=== PATIENT | female | born 1945 | race Caucasian/White ===

== ENCOUNTER → 2019-06-19 13:03 | Outpatient (CLI) | payer MEDICARE, SELFPAY ==
--- NOTE | ~2019-06-19 | MM_ITS ---
EXAMINATION: MM screening [facility] BI w binu HISTORY: Screening mammogram TECHNIQUE: Craniocaudal and mediolateral oblique 3-D tomosynthesis images were obtained and synthetic 2-D images were generated. CAD analysis was submitted and interpreted. COMPARISON: 07/24/2017, 07/11/2016, 07/15/2015 BREAST PARENCHYMAL COMPOSITION: There are scattered areas of fibroglandular density. FINDINGS: There are dystrophic calcifications of the right breast. There is no evidence of suspicious mass, calcification, or architectural distortion to suggest malignancy in either breast. There has b een no suspicious interval change. IMPRESSION: 1. No mammographic evidence of malignancy. 2. Recommend routine screening mammography in one year. BI-RADS Category 2: Benign finding(s). Reviewed, dictated and finalized at location A.
--- NOTE | ~2019-06-19 | DEXA_ITS ---
Bone Density Report Name: Steph Gutierrez Age: 73 Sex: Female Ethnicity: White Date of : 1945 Indication: postmenopausal; screening for osteoporosis; height loss; Referring Provider: TOSHIA DOWLING Study: Bone densitometry was performed. Exam Date: June 19, 2019 Accession number: [id number] Bone Density: Region BMD T-score Z-score Classification AP Spine (L1-L4) 1.139 0.8 3.3 Normal Femoral Neck (Left) 0.841 -0.1 2.0 Normal Total Hip (Left) 1.040 0.8 2.6 Normal Femoral Neck (Right) 0.820 -0.3 1.9 Normal Total Hip (Right) 0.993 0.4 2.2 Normal Total Hip Mean 1.017 0.6 2.4 Normal World Health Organization criteria for BMD impression classify patients as: Normal (T-score at or above -1.0), Osteopenia (T-score between -1.0 and -2.5), or Osteoporosis (T-score at or below -2.5). 10-year Fracture Risk: FRAX not reported because: All T-scores for Spine Total, Hip Total, Femoral Neck at or above -1.0 Clinical Information Provided by Patient: Has used the following medications: Vitamin D Patient maximum height was 68 Menopause Age: 41 No regular weight bearing exercise Drinks caffeinated beverages Onset of menses at age 13 Number of children 2 Impression: The patient has normal bone mass. Discussion: BONE DENSITY IS ABOVE THE MINIMUM DESIRABLE LEVEL AT ALL SKELETAL SITES TESTED. This patient?s bone mineral density is above the minimum desirable level (T-score -1.0 or better) at all sites measured. The patient should follow a healthful lifestyle (good nutrition with adequate calcium and vitamin D, and appropriate weight-bearing exercise). Follow-Up: Consider repeating this study in 5 years or sooner if there is some new clinical indication. Reported by: [facility] on 06/19/2019 2:11:00 PM. Reviewed, dictated and finalized at location [facility]ilma [facility]ENTER[facility]
== END ==
PROVIDERS: PCP Emergency Medicine; Visit Provider Emergency Medicine
DX: Z12.31 Encounter for screening mammogram for malignant neoplasm of breast (principal); Z78.0 Asymptomatic menopausal state
CPT/HCPCS: 77063; 77067; 77080

== ENCOUNTER 2019-12-20 07:32 | Outpatient (RCR) | payer MEDICARE, OTHER, SELFPAY ==
--- NOTE | 2019-12-20 09:09 | OTOPEVAL ---
OCCUPATIONAL THERAPY EVALUATION REPORT 12/20/2019 Thank you for referring Steph Gutierrez to [facility].? The patient is scheduled to be seen for therapy?1x/week for 5 weeks. Please review, sign, date and return this plan of care SUKHWINDER. I agree with and certify that the following plan of care is medically necessary. Referring Physician Date Admitting Provider: Attending Provider: Tate Cerna MD Referring Provider: *OT Outpatient Evaluation Start: 12/20/19 08:03 Freq: Status: Active Protocol: Document 12/20/19 08:03 CHINTAN (Rec: 12/20/19 09:00 CHINTAN [email or web address]) Therapy Assessment Status Assessment Status Assessment Status Evaluation Outpatient Past Medical History Past Medical History Source of Past Medical History Patient Neurological History Hx Neurological Disorders No Significant History Cardiovascular History Hx Hypertension Yes Respiratory History Hx Respiratory Disorders No Significant History Musculoskeletal History Hx Fractures Yes: left wrist 1992 Evaluation Information Problem Diagnosis 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 Zheng Text:As Reported By Patient/ Nehemiah 10/29/19 after having Family reduced extension of the MF and RF of her right hand. He injected the 4th extensor compartment with Cortisone and she did not respond to the injection. MRI shows tenosynovitis of the 4th dorsal compartment. Prior Level of Function Activity Level (Last 3 Months) Occupation Book keeper Hand Dominance Right Activity of Daily Living Ability Independent Cooking Yes Cleaning Yes Laundry Yes Shopping Yes Driving Yes Comments Additional Prior Level of Function Patient lives alone and is Comments active. She does all of her own ADLs, household tasks, and yard work. She states the lack of extension in her right hand inhibits her from opening her hand to reach and grab objects as well as frequently dropping items. 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 She states I'm on a computer ev
--- NOTE | 2020-01-09 14:26 | OTOPEVAL ---
OCCUPATIONAL THERAPY DISCHARGE NOTE 01/09/2020 Steph called and cancelled her remaining therapy visits stating she is getting another MRI and might be getting surgery. Therapy only saw the patient for the initial evaluation and one treatment session which consisted of splinting the affected digits in relative extension for support and to promote function of her dominant hand. D/C'ing today with goals not addressed. Thank you for referring Steph Gutierrez to [facility]. Please review, sign, date and return this D/C Note USKHWINDER. I agree with and certify that the following plan of care is medically necessary. Referring Physician Date Attending Provider: Tate Cerna MD
== END 2020-01-10 12:25 | disposition home or self-care (01) ==
LOC: ANHOT 07:32
PROVIDERS: PCP Emergency Medicine; Visit Provider Plastic Surgery
DX: M65.9 Synovitis and tenosynovitis, unspecified (principal)
CPT/HCPCS: 97018; 97166; L3919

== ENCOUNTER → 2020-11-27 13:44 | Outpatient (CLI) | payer MEDICARE, SELFPAY ==
--- NOTE | ~2020-11-27 | MM_ITS ---
EXAMINATION: MM screening [facility] BI w binu HISTORY: Screening mammogram TECHNIQUE: Craniocaudal and mediolateral oblique 3-D tomosynthesis images were obtained and synthetic 2-D images were generated. CAD analysis was submitted and interpreted. COMPARISON: 06/19/2019, 07/24/2017, 07/07/2016 bilateral digital screening mammogram examinations BREAST PARENCHYMAL COMPOSITION: There are scattered areas of fibroglandular density. FINDINGS: Occasional benign calcifications. There is no evidence of suspicious mass, calcification, o r architectural distortion to suggest malignancy in either breast. There has been no suspicious inter raghu change. IMPRESSION: 1. No mammographic evidence of malignancy. 2. Recommend routine screening mammography in one year. BI-RADS Category 2: Benign finding(s). Reviewed, dictated and finalized at location A.
== END ==
PROVIDERS: PCP Emergency Medicine; Visit Provider Emergency Medicine
DX: Z12.31 Encounter for screening mammogram for malignant neoplasm of breast (principal)
CPT/HCPCS: 77063; 77067

== ENCOUNTER 2021-01-27 09:33 | Outpatient (CLI) | payer MEDICARE, SELFPAY ==
--- NOTE | 2021-01-27 11:15 | NEURO_ITS ---
Impression: # Complains of right hand numbness and difficulty in moving fingers. # Right Carpal Tunnel Syndrome. # No ulnar neuropathy. # Normal needle/EMG exam. # Clinical correlation recommended. Nerve Conduction Studies Anti Sensory Summary Table Stim Site NR Peak (ms) P-T Amp (?V) Site1 Site2 Delta-P (ms) Dist (cm) Federico (m/s) Right Median Anti Sensory (2-3nd Digit) Wrist 3.7 25.5 Wrist 2-3nd Digit 3.7 14.0 38 Wrist 4.1 18.4 Wrist 2-3nd Digit 3.7 14.0 38 Right Radial Anti Sensory (Base 1st Digit) Wrist 2.1 26.6 Wrist Base 1st Digit 2.1 0.0 Right Ulnar Anti Sensory (5th Digit) Wrist 2.7 51.3 Wrist 5th Digit 2.7 14.0 52 Motor Summary Table Stim Site NR Onset (ms) O-P Amp (mV) Site1 Site2 Delta-0 (ms) Dist (cm) Federico (m/s) Right Median Motor (Abd Poll Brev) Wrist 4.1 4.6 Elbow Wrist 4.9 28.0 57 Elbow 9.0 3.6 Right Ulnar Motor (Abd Dig Minimi) Wrist 2.4 5.6 A Elbow Wrist 4.9 29.0 59 A Elbow 7.3 3.5 F Wave Studies NR F-Lat (ms) L-R F-Lat (ms) Right Median (Mrkrs) (Abd Poll Brev) 29.63 Right Ulnar (Mrkrs) (Abd Dig Min) 28.44 EMG Side Muscle Nerve Root Ins Act Fibs Amp Dur Recrt Comment Right 1stDorInt Ulnar C8-T1 Nml Nml Nml Nml Nml Right Ext Indicis Radial (Post Int) C7-8 Nml Nml Nml Nml Nml Right Ext Digitorum Radial (Post Int) C7-8 Nml Nml Nml Nml Nml Right BrachioRad Radial C5-6 Nml Nml Nml Nml Nml Right PronatorTeres Median C6-7 Nml Nml Nml Nml Nml Right Abd Poll Brev Median C8-T1 Nml Nml Nml Nml Nml Right ABD Dig Min Ulnar C8-T1 Nml Nml Nml Nml Nml MTDD
== END 2021-01-27 09:34 | disposition home or self-care (01) ==
LOC: ANHNEURO 09:36
PROVIDERS: PCP Emergency Medicine; Visit Provider Plastic Surgery
DX: G56.01 Carpal tunnel syndrome, right upper limb (principal); R29.898 Other symptoms and signs involving the musculoskeletal system
CPT/HCPCS: 95886; 95909

== ENCOUNTER 2021-03-15 10:40 | Outpatient (CLI) | payer MEDICARE, SELFPAY ==
[2021-03-15 11:26] LABS: Anion Gap 6 mmol/L (8-16); Blood Urea Nitrogen 33 mg/dL (7-17); Calcium 9.6 mg/dL (8.4-10.2); Carbon Dioxide 25 mmol/L (22-30); Chloride 106 mmol/L (98-107); Estimated Glomerular Filt Rate 54; Glucose 103 mg/dL (65-110); Potassium 4.2 mmol/L (3.4-5.0); Sodium 137 mmol/L (137-145)
== END 2021-03-15 10:41 | disposition home or self-care (01) ==
PROVIDERS: Anesthesiology; PCP Emergency Medicine; Visit Provider Plastic Surgery
DX: Z79.899 Other long term (current) drug therapy (principal); Z01.818 Encounter for other preprocedural examination
CPT/HCPCS: 36415; 80048

== ENCOUNTER 2021-03-17 00:22 | Day surgery (SDC) | payer MEDICARE, SELFPAY ==
[2021-03-10 12:44] VITALS: BMI 36.6
--- NOTE | 2021-03-10 13:00 | PC.NURSE ---
Report to the Outpatient Waiting Room, entrance under the green pavilion located off [facility], at time _0600_ on date _03/17/21_. OR Time: _0730_. - You and your visitor will be asked a series of questions to screen for COVID 19 for your protection. - A mask is required within the hospital. - Only one visitor is allowed at this time. Patient visitors will be guided where to wait when not with patient. Preoperative COVID Testing Requirements: No COVID Test needed if: (proof is required; if not received patient will have Rapid Test prior to entry) - Patient has received COVID Vaccine at least 14 days prior to procedure date or - Patient has positive COVID test result within last 90 days of surgery date. COVID Test needed if above criteria is not met If not COVID vaccinated a COVID test must be conducted within 72 hours of surgery and patient is asked to isolate self from time of testing until procedure. You will go to the [facility] for your COVID testing. The [facility] site is located at the corner of [address] [facility]. You will only be called if COVID results are positive and your surgeon may reschedule your elective surgery date. Patients may have clear liquids (water, carbonated beverages, clear teas, apple juice) until 3 hours prior to surgery (0430 AM) with a maximum of 20 ounces. - No food from midnight until time of surgery - Infants may have breast milk until 4 hours before surgery, infant formula 6 hours prior to surgery. - Children will be allowed to drink immediately following surgery. If applicable, please bring a bottle or sippy cup to assist with drinking. Juice, water, soda, and popsicles are readily available. For infants on formula, please bring formula the day of surgery. Pacifiers are allowed. Take the following medications with a SIP of water the morning of surgery: __NONE____ Medications to discontinue per ANESTHESIA -___VITAMIN D3 - 3 DAYS PRIOR TO SURGERY___ Date to take last dose___03/13/21 Please no make-up, nail anguillan, hairspray, perfume, deodorant, or body powder the day of surgery. No jewelry (including any body piercings) or valuables the day of surgery, leave them at home. Please take a shower or bath the night before, or the morning of, surgery with an antibacterial soap. Wear comfortable, loose fitting clothing. Children are encouraged to wear pajamas. - Jewelry must be removed prior to entering the operating room. Rings and piercings that are not removed may be cut off. - The hospital will not accept responsibility for valuables. - Please leave all valuables, including medications, at home the day of surgery. If you are going home after surgery, a licensed recycle driver must drive you home. - NO public transportation without another adult. - We recommend that an adult stay with you for 24 hours following discharge. - We also recommend that you do not drive, make important decision, drink alcoholic beverages, or take any drugs that were not prescribed by your health care provider for at least 24 hours after your discharge time. For Pediatric surgeries, we recommend two adults accompany the child home (only one inside the building at this time). Follow any additional instructions given to you from your surgeon. Telephone instructions given to PT and asked if any additional questions and then verbalized understanding. Patient advised to call surgeon office or pre surgery nurse liaison [phone] if any additional questions.
--- NOTE | 2021-03-16 13:44 | WPDANESEPPF ---
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 Patient Data Age: 75 Gender: F Height: 1.73 m Weight: 109.09 kg Allergies Allergy/AdvReac Type Severity Reaction Status Date / Time No Known Allergies Allergy Verified 03/17/21 06:22 Home Medications Medication Instructions Recorded Confirmed Type aspirin 81 mg tablet,delayed 81 mg PO QAM 03/28/19 03/17/21 History release cholecalciferol (vitamin D3) 50 2,000 unit PO QAM 03/28/19 03/17/21 History mcg (2,000 unit) capsule simvastatin 20 mg tablet 20 mg PO .daily in the evening 03/28/19 03/17/21 History tablet lisinopril 10 See Rx Instructions .ROUTE 10/23/20 03/17/21 Rx mg-hydrochlorothiazide 12.5 mg .COMPLEX #90 tablet tablet Patient hx anesthesia problems: none Family hx anesthesia problems: none Results Review: All pre-operative results and documents have been reviewed as part of the pre-operative evaluation. [facility] Past Medical History Medical History (Updated 03/16/21 @ 13:45 by Ron Quinteros MD) HLD (hyperlipidemia) HTN (hypertension) Obesity Family History Family History Mother Patient's mother is , Onset Age: 89 Father Patient's father is , Onset Age: 39 Social History Social History Smoking status: Never smoker Second hand tobacco smoke exposure: No Alcohol intake: never Substance use: never Substance use type: does not use Living arrangements: alone Spiritual care concerns: No Anes - Eval Final PreProcedure Day of Procedure 03/16/21 13:44 Patient weight: obese Heart: regular rate and rhythm Lungs: clear to auscultation and normal air movement Airway: Mallampati scale class II Neurological: alert and oriented Last oral intake: >/= 8 hours ASA classification: III Emergent: no Anesthetic plan: proceed Anesthesia type and monitoring: general GIVS and LMA Results Review: All pre-operative results and documents have been reviewed as part of the pre-operative evaluation. Informed Consent: The patient's anesthetic plan and its attendant risks and benefits were discussed with the patient/family/POA. Questions were solicited and answers provided to the satisfaction of the patient/family/POA.
[2021-03-17] VITALS (7 sets, daily range): BP systolic 120–157; BP diastolic 52–90; PULSE 66–83; RESP 14–18; TEMP 36.3–37.2; O2SAT 93–100
[2021-03-17] MEDS: LACTATED RINGERS 1,000 ML 30 ML IV CONT ×2 (06:37→10:57)
--- NOTE | 2021-03-17 07:11 | WPDHPUPDATE1 ---
History and Physical Update Update Date/Time: 03/17/21 07:11 History and Physical has been reviewed, including an updated exam of the patient. There are NO changes in the patient's condition. Risks, benefits, and alternatives have been discussed and questions answered. Patient agrees to proceed with procedure.
--- NOTE | 2021-03-17 07:12 | WPDHPUPDATE1 ---
History and Physical Update Update Date/Time: 03/17/21 07:12 History and Physical has been reviewed, including an updated exam of the patient. There are NO changes in the patient's condition. Risks, benefits, and alternatives have been discussed and questions answered. Patient agrees to proceed with procedure.
[2021-03-17] MEDS: LIDO 1%/EPINEPHRINE 1:100,000 50 ML VIAL INFILTRATE (09:53)
[2021-03-17] MEDS: BUPIVACAINE HCL 0.25% PF 30 ML VIAL INFILTRATE (10:02)
--- NOTE | 2021-03-17 12:04 | W.PM.PROC2 ---
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 Chronic subluxation of the a right 3rd extensor tendon at the metacarpophalangeal joint) Procedure Performed Tenolysis of the extensor digitorum calmness to the middle ring and 5th fingers. Centralization of the 3rd extensor digitorum communis with local tendon transfer. Side to side transfer of the 3rd and 4th extensor tendons to the 2nd. [id number] transfer of the 4th extensor tendon to the extensor digiti minimi. Application of forearm based volar splint. Surgeon Tate Cerna MD Senior Clinical Data Analyst [facility] Indications Inability to actively extend the middle and ring fingers Findings Traumatic attritional rupture of the extensor tendons to the 3rd and 4th and 5th comment is tendons. Ulnar subluxation of the 3rd and 4th extensor tendons at the metacarpophalangeal joint. Description of Procedure The patient was brought today with the intention correcting ulnar subluxation of the extensor tendons due to presumed sagittal band rupture. It was not expected that this was prepped all of her problems. Had an MRI which indicated intact extensor tendons their less the patient's ability to extend the fingers worsened as she increased extension of her wrist. We were concerned for unidentified ruptures, adhesions or synovitis. Upon entering the site for local tissue transfer for centralization, it was observed that the extensor tendons distal to the extensor retinaculum were ruptured and scarred and the only active extension she had to middle and ring fingers were through either tendon scar or very distal juncture tendineae connected to functioning tendons. It was clear that no correction of her problem could be done without addressing the ruptured tendons. The longitudinal incision was extended over the 3rd proximal phalanx on to the forearm proximal to the extensor retinaculum. Distal the was incised as well eventually to allow harvesting the extensor tendon for centralization to the middle finger and to be able access all sites that needed repairs. Each tendon was carefully examined the 2 tendons to the index were intact and quite functional. The extensor digiti minimi was intact and the 5th common this was not. All scarred tissue that was visible was removed the use. To middle finger was over 2 cm small through the ring finger about a cm and a half. We elected to preserve the extensor indicis propria is intact the utilized the 2nd extensor digitorum calmness as the motor for the 3rd. We also split the 4th extensor tendon attaching the radial stump to the middle stump and hands to the 2nd common S . The ulnar stump of the 4th was attached to the EDM. We did stabilize the middle extensor tendon over the metacarpophalangeal joint with a graft harvested from the radial side of the middle finger extensor and passing it beneath the intermetacarpal ligament and back to itself. All this was done with the fingers relatively extended all repairs were done 4-0 Prolene at multiple sites. The tourniquet was released at 90 minutes. We did determine that all of the extensors passing under the retinaculum were free from adhesions. We also demonstrated that each finger could be flexed passively to the palm. The wound was irrigated and skin closed with intradermal 4-0 Vicryl multiple sites in the running 4-0 Monocryl to close the skin. A soft bandage was applied with a volar Alumafoam splint the wrist in about 45? of extension the fingers relatively straight the tips were allowed some range of motion over the end of the splint. Cord % Marcaine was infiltrated to the wound area. Patient was discharged from the operating room stable condition. She has been given 2 g of Ancef intraoperatively a 1000 mg of Tylenol p.o. and postop Toradol.
== END 2021-03-17 11:40 | disposition home or self-care (01) ==
PROVIDERS: PCP Emergency Medicine; Visit Provider Plastic Surgery
PROC: (CPT 26449; principal; 2021-03-17 07:30)
DX: S56.417A Strain of extensor muscle, fascia and tendon of right little finger at forearm level, initial encounter (principal); S56.413A Strain of extensor muscle, fascia and tendon of right middle finger at forearm level, initial encounter; S56.415A Strain of extensor muscle, fascia and tendon of right ring finger at forearm level, initial encounter; M24.444 Recurrent dislocation, right finger; X58.XXXA Exposure to other specified factors, initial encounter; I10 Essential (primary) hypertension; E78.5 Hyperlipidemia, unspecified; E66.9 Obesity, unspecified; Z68.39 Body mass index [BMI] 39.0-39.9, adult; Z79.82 Long term (current) use of aspirin
CPT/HCPCS: 26449 ×3; 25310; 25312; A9270; J3010; J7120

== ENCOUNTER 2022-05-23 10:38 | Outpatient (CLI) | payer MEDICARE, SELFPAY ==
--- NOTE | ~2022-05-23 | US_ITS ---
EXAMINATION: US carotid duplex BI DATE: 05/23/2022 11:27 INDICATION: Unspecified symptoms and signs involving the body of the arteries. TECHNIQUE: Grayscale, color Doppler, and pulsed Doppler images of the cervical carotid arteries were obtained. The degree of vessel stenosis is placed in one of the following categories: normal, <50%, 5 0-69%, >=70% but less than near-occlusion, near-occlusion, or total occlusion. Note that percent sten osis relative to normal distal artery lumen diameter is indirectly measured from velocity measurement s as described by Marc, et al. Radiology 2003; 229:340-346. COMPARISON: None. FINDINGS: RIGHT: The right common carotid artery (CCA) peak systolic velocity (PSV) is 127 cm/s. The right internal ca rotid artery (ICA) PSV is 56 cm/s. The right ICA end-diastolic velocity (EDV) is 19 cm/s. The right I CA/CCA PSV ratio is 0.4. Grayscale and color Doppler images yield an estimate of <50% diameter reduct ion from plaque in the ICA. The external carotid artery (ECA) PSV is 87 cm/s. There is antegrade flow in the right vertebral artery. LEFT: The left CCA PSV is 108 cm/s. The left ICA PSV is 52 cm/s. The left ICA EDV is 18 cm/s. The left ICA/ CCA PSV ratio is 0.5. Grayscale and color Doppler images yield an estimate of <50% diameter reduction from plaque in the ICA. The ECA PSV is 83 cm/s. There is antegrade flow in the left vertebral artery . IMPRESSION: 1. <50% stenosis in the right internal carotid artery. 2. <50% stenosis in the left internal carotid artery. Reviewed, dictated and finalized at location A. [employer]
== END 2022-05-23 10:39 | disposition home or self-care (01) ==
PROVIDERS: PCP Emergency Medicine; Visit Provider Emergency Medicine
DX: R09.89 Other specified symptoms and signs involving the circulatory and respiratory systems (principal); I65.23 Occlusion and stenosis of bilateral carotid arteries
CPT/HCPCS: 93880

== ENCOUNTER → 2022-06-16 13:06 | Outpatient (CLI) | payer MEDICARE, SELFPAY ==
--- NOTE | ~2022-06-16 | MM_ITS ---
EXAMINATION: MM screening vish BI w binu HISTORY: Screening TECHNIQUE: Craniocaudal and mediolateral oblique 3-D tomosynthesis images were obtained and synthetic 2-D images were generated. CAD analysis was submitted and interpreted. COMPARISON: Comparison to multiple prior studies sequentially, with oldest reviewed study dated 07/02. BREAST PARENCHYMAL COMPOSITION: Breast composed of scattered areas of fibroglandular density FINDINGS: There is no evidence of suspicious mass, calcification, or architectural distortion to sugg est malignancy in either breast. There has been no suspicious interval change. IMPRESSION: 1. No mammographic evidence of malignancy. 2. Recommend routine screening mammography in one year. BI-RADS Category 1: Negative Reviewed, dictated and finalized at location A.
--- NOTE | ~2022-06-16 | DEXA_ITS ---
Bone Density Report Name: TEDDY DURANT Age: 76 Sex: Female Ethnicity: White Date of : 1945 Indication: postmenopausal; screening for osteoporosis; height loss; Referring Provider: TOSHIA DOWLING Study: Bone densitometry was performed. Exam Date: June 16, 2022 Accession number: [id number] Bone Density: Region BMD T-score Z-score Classification AP Spine (L1-L4) 1.154 1.0 3.6 Normal Femoral Neck (Left) 0.793 -0.5 1.7 Normal Total Hip (Left) 1.029 0.7 2.7 Normal Femoral Neck (Right) 0.858 0.1 2.3 Normal Total Hip (Right) 0.990 0.4 2.4 Normal Total Hip Mean 1.010 0.6 2.6 Normal World Health Organization criteria for BMD impression classify patients as: Normal (T-score at or above -1.0), Osteopenia (T-score between -1.0 and -2.5), or Osteoporosis (T-score at or below -2.5). 10-year Fracture Risk: FRAX not reported because: All T-scores for Spine Total, Hip Total, Femoral Neck at or above -1.0 Previous Exams: Region Exam Age BMD T-score BMD Change BMD Change Date g/cm2 vs Baseline vs Previous AP Spine(L1-L4) 06/16/2022 76 1.154 1.0 0.015 0.015 06/19/2019 73 1.139 0.8 Total Hip(Left) 06/16/2022 76 1.029 0.7 -0.010 -0.010 06/19/2019 73 1.040 0.8 Total Hip(Right) 06/16/2022 76 0.990 0.4 -0.003 -0.003 06/19/2019 73 0.993 0.4 *Denotes significance at 95% confidence level, LSC for AP Spine = 0.022 g/cm2, LSC for Total Hip = 0.027 g/cm2 Clinical Information Provided by Patient: Has used the following medications: Vitamin D Patient maximum height was 67 Menopause Age: 41 No regular weight bearing exercise Does not regularly consume dairy products Drinks caffeinated beverages Onset of menses at age 13 Number of children 2 Impression: The patient has normal bone mass. No significant bone loss was observed. Discussion: BONE DENSITY IS ABOVE THE MINIMUM DESIRABLE LEVEL AT ALL SKELETAL SITES TESTED. This patient?s bone mineral density is above the minimum desirable level (T-score -1.0 or better) at all sites measured. The patient should follow a healthful lifestyle (good nutrition with adequate calcium and vitamin D, and appropriate weight-bearing exercise). Follow-Up: Consider repeating this study in 5 years or sooner if there is some new clinical indication. Reported by: FLORES on 06/16/2022 1:50:00 PM.
== END ==
PROVIDERS: PCP Emergency Medicine; Visit Provider Emergency Medicine
DX: Z12.31 Encounter for screening mammogram for malignant neoplasm of breast (principal); Z78.0 Asymptomatic menopausal state
CPT/HCPCS: 77063; 77067; 77080

== ENCOUNTER 2023-08-09 08:19 | Outpatient (CLI) | payer MEDICARE, SELFPAY ==
--- NOTE | ~2023-08-09 | MR_ITS ---
MRI of the right ankle Clinical history: Arthritis Technique: Coronal proton-density and proton-density fat-sat images, axial proton-density and proton- density fat-sat images, and sagittal proton-density and proton-density fat-sat images were acquired. Findings: Syndesmotic ligament are intact. There is probable heterotopic ossification at the region o f the anterior talofibular ligament, which itself is not clearly delineated. Posterior talofibular li gament is probably intact. Calcaneofibular ligament is probably intact. Deltoid ligament is intact. There is high-grade atrophic type partial tearing of the tibialis posterior tendon, which is markedly thinned/decrease in caliber there is distal portion. Flexor hallucis and flexor digitorum longus ten dons are intact. Peroneal tendons are intact, mild tenosynovitis. Anterior extensor tendons are intac t. Achilles tendon is intact. There is diffuse high-grade chondromalacia of the tibiotalar joint with joint space narrowing and pat kelli reactive subchondral marrow edema. No articular surface irregularity evident. There is also moder ate degenerative change of the subtalar joint. There is moderate degenerative change of the calcaneoc uboid joint. There is advanced degenerative change of the tarsometatarsal joints. There is moderate d egenerative change of the naviculocuneiform articulation. Tibiotalar and subtalar joint effusions are probably present. Plantar fascia intact with plantar calcaneal spur. There is mild diffuse soft tissue edema about the ankle. 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 Since June subtalar and tibiotalar joint effusions. High-grade atrophic type partial tearing of the tibial posterior tendon, which is markedly thinned/de creased in caliber distally. Peroneal tendon tenosynovitis, mild. 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 Reviewed, dictated and finalized at location M. 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 Since June subtalar and tibiotalar joint effusions. High-grade atrophic type partial tearing of the tibial posterior tendon, which is markedly thinned/decreased in caliber distally. Peroneal tendon tenosynovitis, mild. 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
== END 2023-08-09 08:20 ==
DX: M19.071 Primary osteoarthritis, right ankle and foot (principal); M21.41 Flat foot [pes planus] (acquired), right foot; M76.821 Posterior tibial tendinitis, right leg; M25.471 Effusion, right ankle; S96.811A Strain of other specified muscles and tendons at ankle and foot level, right foot, initial encounter; M65.871 Other synovitis and tenosynovitis, right ankle and foot; X58.XXXA Exposure to other specified factors, initial encounter
CPT/HCPCS: 73721

== ENCOUNTER 2023-11-08 13:46 | Outpatient (CLI) | payer MEDICARE, SELFPAY ==
--- NOTE | ~2023-11-08 | MM_ITS ---
EXAMINATION: MM screening vish BI w binu HISTORY: Screening TECHNIQUE: Craniocaudal and mediolateral oblique 3-D tomosynthesis images were obtained and synthetic 2-D images were generated. CAD analysis was submitted and interpreted. COMPARISON: Comparison to multiple prior studies sequentially, with oldest reviewed study dated 07/14. BREAST PARENCHYMAL COMPOSITION: Not dense: There are scattered areas of fibroglandular density. FINDINGS: There is no evidence of suspicious mass, calcification, or architectural distortion to sugg est malignancy in either breast. There has been no suspicious interval change. IMPRESSION: 1. No mammographic evidence of malignancy. 2. Recommend routine screening mammography in one year. BI-RADS Category 1: Negative Reviewed, dictated and finalized at location B.
== END 2023-11-08 13:47 ==
LOC: MICIMG 13:47
PROVIDERS: PCP Emergency Medicine; Visit Provider Emergency Medicine
DX: Z12.31 Encounter for screening mammogram for malignant neoplasm of breast (principal)
CPT/HCPCS: 77063; 77067